=== PATIENT | female | born 1995 | race African-American/Black ===

== ENCOUNTER 2017-12-16 19:12 | Emergency (ER) | payer OTHER | END 2017-12-16 19:40 | disposition home or self-care (01) | LOC: SCSER 19:12 | DX: R09.81 Nasal congestion (principal) | CPT/HCPCS: 99283 ==

== ENCOUNTER 2019-10-06 05:30 | Inpatient (IN) | payer OTHER ==
--- NOTE | 2019-10-06 05:15 | PDOC.LDHP ---
Labor and Delivery H&P HPI: 24 y/o at 39 and 0/7 weeks for term induction of labor. Current gestational age (weeks): 39 Due date: 10/13/19 Grav: 2 Para: 1 Current complications: none Current medications: pre- vitamins Previous surgical history: none Allergies/Adverse Reactions: Allergies Allergy/AdvReac Type Severity Reaction Status Date / Time No Known Allergies Allergy Verified 06/04/13 18:58 Social history: none - Physical Exam Vital signs reviewed and normal: yes General: NAD, resting Heart: RRR Lungs: CTAB Abdomen: gravid Extremeties: no edema - Assessment L&D Assessment: elective induction at term - Plan Plan: admit to L&D, cervical ripening
[~2019-10-06 05:30] MED LIST: Acetaminophen 500 MG TAB PO PRN; Carboprost 250 MCG/ML AMP IM PRN; Diphenoxylate HCl/Atropine Tablet PO PRN; HYDROcodone/Acetaminophen 5/325 mg Tablet PO PRN; Ibuprofen 800 MG TAB PO PRN; Lidocaine 1% (PF) 30 ML VIAL SC PRN; Methylergonovine 0.2 MG/ML VIAL IM PRN; Misoprostol 200 MCG TAB PR PRN; NS / Oxytocin 40 units/1000ml 1,000 ML IV PRN; NS w/ Oxytocin 10 units 500 ML IV SCH; Ondansetron PF 4 MG/2 ML Vial IVP PRN; Penicillin G Potassium 5 MILL.UNITS in Sodium Chloride 0.9% 100 ML IVPB SCH; Promethazine HCl 25 MG/ML VIAL IM PRN; Zolpidem Tartrate 5 MG TAB PO PRN; hydrALAZINE 20 MG/ML VIAL SLOW IVP PRN
[2019-10-06] MEDS: Lactated Ringer's 1,000 ML IV SCH ×3 (10:29→17:26)
[2019-10-06 10:49] LABS: Hemoglobin 10.8 g/dL (12.0-16.0); Mean Corpuscular Hemoglobin 29.5 pg (27.0-31.0); Mean Corpuscular Volume 86.9 fL (78.0-98.0); Platelet Count 131 thou/uL (130-400); RBC Distribution Width 11.6 % (11.5-14.5); Red Blood Cell (RBC) Count 3.64 mill/uL (4.20-5.40)
[2019-10-06] MEDS: Misoprostol 100 MCG TAB VAG SCH ×4 (11:16→21:02)
[2019-10-06 11:22] VITALS: BMI 30.7
[2019-10-06 11:28] LABS: Syphilis Antibody Nonreactive (Nonreactive); Syphilis Antibody Index 0.09 S/CO (<1.00 Non-Reactive)
[2019-10-06 11:29] LABS: HBSAg Index 0.12 S/CO (0-0.99); Hep B Surf Ag Non-Reactive S/CO (NonReactive)
[2019-10-06] MEDS: Penicillin G 2.5 MILL.units 2.5 MILL.UNITS in Premix Bag 1 BAG IVPB SCH ×4 (14:54→20:34)
[2019-10-06] MEDS: NS w/ Oxytocin 10 units 500 ML IV SCH (15:09)
[2019-10-07] MEDS: Misoprostol 100 MCG TAB VAG SCH ×2 (00:08→07:28)
[2019-10-07] MEDS: Penicillin G 2.5 MILL.units 2.5 MILL.UNITS in Premix Bag 1 BAG IVPB SCH ×4 (00:10→19:37)
[2019-10-07] MEDS: Lactated Ringer's 1,000 ML IV SCH ×2 (02:45→11:34)
[2019-10-07] MEDS: Butorphanol Tartrate 1 MG/ML VIAL SLOW IVP PRN ×4 (02:50→09:28)
[2019-10-07] MEDS ORDERED: Fentanyl 4 mcg/Bup 0.1% Cadd 100 ML ONE (11:14)
[2019-10-07] MEDS ORDERED: Lidocaine 1% PF 5 ML VIAL ONE (11:22)
[2019-10-07] MEDS ORDERED: Lidocaine 1.5%/Epinephrine 1:200,000 5 ML AMPUL IJ ONE (11:25)
[2019-10-07] MEDS ORDERED: ePHEDrine/0.9% NaCl/PF SYRINGE 50 mg/10 ml SLOW IVP PRN (11:34)
[2019-10-07] MEDS ORDERED: Naloxone HCl 0.4 mg/ml Vial IVP PRN ×2 (11:34)
[2019-10-07] MEDS ORDERED: diphenhydrAMINE 50 MG/ML VIAL IVP PRN (11:34)
[2019-10-07] MEDS ORDERED: Promethazine HCl 25 MG/ML VIAL IM PRN ×2 (11:34→16:29)
[2019-10-07] MEDS ORDERED: Ondansetron PF 4 MG/2 ML Vial IVP PRN ×2 (11:34→16:29)
[2019-10-07] MEDS ORDERED: Acetaminophen 325 MG TAB PO PRN (11:34)
[2019-10-07] MEDS ORDERED: Lactated Ringer's 500 ML IV PRN (11:34)
[2019-10-07] MEDS ORDERED: Communication Order-Pharmacy FS PRN (11:45)
[2019-10-07] MEDS ORDERED: Fentanyl 4 mcg/Bupivacaine 0.1% Cassette 100 ML EPIDURAL SCH (11:45)
[2019-10-07] MEDS ORDERED: hydrALAZINE 20 MG/ML VIAL SLOW IVP PRN (16:29)
[2019-10-07] MEDS ORDERED: Bisacodyl 10 MG SUPP PR PRN (16:29)
[2019-10-07] MEDS ORDERED: Preparation H Ointment 28 GM TUBE PR PRN (16:29)
[2019-10-07] MEDS ORDERED: Milk Of Magnesia 30 ML UDCUP PO PRN (16:29)
[2019-10-07] MEDS ORDERED: diphenhydrAMINE 25 MG CAP PO PRN (16:29)
[2019-10-07] MEDS ORDERED: Zolpidem Tartrate 5 MG TAB PO PRN (16:29)
[2019-10-07] MEDS ORDERED: Varicella virus, LIVE 0.5 ML VIAL SC ONE (16:29)
[2019-10-07] MEDS ORDERED: HYDROcodone/Acetaminophen 5/325 mg Tablet PO PRN (16:29)
[2019-10-07] MEDS ORDERED: Adacel (T-DAP) 0.5 ML SYRINGE IM ONE (16:29)
[2019-10-07] MEDS ORDERED: Benzocaine-Menthol 82.5 ML CAN TOP PRN (16:29)
[2019-10-07] MEDS ORDERED: Misoprostol 200 MCG TAB VAG PRN (16:29)
[2019-10-07] MEDS ORDERED: NS / Oxytocin 40 units/1000ml 1,000 ML IV SCH (16:29)
[2019-10-07] MEDS ORDERED: Methylergonovine 0.2 MG TAB PO PRN (16:29)
[2019-10-07] MEDS ORDERED: Measles/Mumps/Rubella 10 MCG/0.5 ML VIAL SC ONE (16:29)
[2019-10-07] MEDS: Ibuprofen 800 MG TAB PO SCH ×2 (18:08→20:16)
[2019-10-07] MEDS: Ferrous Sulfate 325 MG TAB PO SCH (18:09)
[2019-10-07] MEDS: HYDROcodone/Acetaminophen 5/325 mg Tablet PO PRN (18:47)
[2019-10-07] MEDS: NS w/ Oxytocin 10 units 500 ML IV SCH (19:37)
[2019-10-07] MEDS: Docusate Calcium (SURFAK) 240 MG CAP PO SCH (21:12)
[2019-10-08] MEDS: HYDROcodone/Acetaminophen 5/325 mg Tablet PO PRN (04:27)
[2019-10-08 04:49] LABS: Hemoglobin 10.6 g/dL (12.0-16.0); Mean Corpuscular HGB CONC 34.1 g/dL (32.0-36.0); Mean Corpuscular Hemoglobin 30.2 pg (27.0-31.0); Mean Corpuscular Volume 88.8 fL (78.0-98.0); Mean Platelet Volume 7.8 fL (7.4-10.4); Platelet Count 143 thou/uL (130-400); RBC Distribution Width 11.8 % (11.5-14.5); Red Blood Cell (RBC) Count 3.51 mill/uL (4.20-5.40); White Blood Cell (WBC) Count 8.8 thou/uL (4.8-10.8)
[2019-10-08] MEDS: Ibuprofen 800 MG TAB PO SCH ×2 (05:58→14:38)
[2019-10-08] MEDS: Ferrous Sulfate 325 MG TAB PO SCH ×2 (08:39→17:31)
[2019-10-08] MEDS: Docusate Calcium (SURFAK) 240 MG CAP PO SCH (08:43)
[2019-10-08] MEDS ORDERED: Prenatal Vitamin 1 TAB PO SCH (09:00)
[2019-10-08 12:55] VITALS: TEMP 98.1
[2019-10-08 12:57] VITALS: BP 123/73
--- NOTE | 2019-10-08 19:44 | PDOC.PP ---
Post Progress Note Post Day #: 1 PO intake tolerated: yes Flatus: yes Ambulation: yes Vital Signs (12 hours) Temp Pulse Resp BP Pulse Ox 10/08/19 12:52 98.1 F 59 L 19 123/73 99 10/08/19 08:43 97.7 F 58 L 20 118/69 98 Weight Weight 190 lb - Physical Examination General: NAD Cardiovascular: no m/r/g, RRR Respiratory: clear to auscultation bilaterally, non-labored breathing Abdominal: + bowel sounds, lochia, no distention, appropriately TTP Extremities: negative homans (B) Neurological: no gross focal deficits Psychiatric: A&Ox3, normal affect Result Diagrams: 10/08/19 04:31 Additional Labs: Post Labs Blood Type O POSITIVE 10/06/19 11:07 Hep Bs Antigen Non-Reactive S/CO (NonReactive) 10/06/19 10:32
== END 2019-10-08 20:04 | disposition home or self-care (01) | DRG 807 ==
LOC: L&D 09:04 → 3SE 10-07 16:59
PROVIDERS: ADMIT Obstetrics & Gynecology; ATTEND Obstetrics & Gynecology
PROC: 10E0XZZ Delivery of Products of Conception, External Approach (ICD-10-PCS; principal; 2019-10-06)
DX: O80 Encounter for full-term uncomplicated delivery (principal); Z37.0 Single live birth; Z3A.39 39 weeks gestation of pregnancy
CPT/HCPCS: 36415; 85027; 86780; 86850; 86900; 86901; 87340; J0595; J2001; J2540; J2590; J3490